=== PATIENT | female | born 1935 | race Caucasian/White ===

== ENCOUNTER 2019-03-17 00:47 | Emergency (ER) | payer MEDICARE ==
[~2019-03-17] VITALS: Ht 162.6 cm; Wt 56.7 kg
--- NOTE | 2019-03-17 01:45 | Diagnostic Imaging Report ---
History: Fall, pain Comparison studies:None Technique: Axial images were obtained from the brain and cervical spine. Coronal and sagittal images reconstructed from the axial data. Intravenous contrast: None Dose modulation, iterative reconstruction, and/or weight based adjustment of the mA/kV was utilized to reduce the radiation dose to as low as reasonably achievable. Findings: Head CT: Scalp/skull: No abnormalities. No fractures, blastic or lytic lesions. Brain sulci: Mildly prominent. Ventricles: Mild compensatory dilatation. No hydrocephalus. Parenchyma: Subtle hypodensities in the supratentorial white matter are small vessel ischemic changes. Cortical-based hypodensity at the right cuneus with associated volume loss. No masses, hemorrhage or acute cortical vascular insults. Sellar/suprasellar region: No abnormalities. Craniocervical junction: Patent foramen magnum. No Chiari one malformation. Incidental findings: Atherosclerotic calcifications in the carotid siphons Cervical spine CT: Fractures: None. Soft tissues: No gross abnormalities. Atlantoaxial articulation: Intact. Alignment: Normal lordosis. No scoliosis. Cervicomedullary junction: No abnormalities. Patent foramen magnum. Vertebrae: No infection or neoplasm. Degenerative changes: Moderate bilateral degenerative foraminal narrowing at C5-6. Incidental findings: Sclerotic s focus at C2 left facet joint. Impression: Head CT: 1. No acute abnormality. Cervical spine CT: 1. No acute abnormalities. 2. Cannot exclude ligament, spinal cord and or vascular abnormalities on the basis of this examination. Signed by: DR Oscar Nicolas M.D. on 03/17/2019 1:41 AM
--- NOTE | 2019-03-17 02:27 | Diagnostic Imaging Report ---
Exam: AP radiograph of the pelvis-1 view; right hip radiographs-2 views; History: Status post fall. Comparison: None. Findings: Diffuse osteopenia. There is partially seen bilateral proximal femoral ORIF. The hardware appears intact. There is an acute, comminuted intertrochanteric/proximal right femoral shaft fracture. There is associated displacement, measuring up to 1.6 cm. There is an old fracture deformity of the left proximal femur. The right femoral acetabular alignment is maintained. Bowel gas partially appears visualization of the pelvis. Surgical clips project in the pelvis and right lower quadrant. Impression: Acute, comminuted, displaced intertrochanteric/proximal right femoral shaft fracture. Postsurgical changes status post bilateral proximal femoral ORIF. Partially visualized hardware appears intact. Signed by: Dr. Kelley Melendez MD on 03/17/2019 2:24 AM
--- NOTE | 2019-03-17 02:27 | Diagnostic Imaging Report ---
Exam: Left knee radiographs-3 views Clinical History: Fall. Comparison: None. Findings: Diffuse osteopenia. No evidence of acute fracture or malalignment. No suprapatellar joint effusion. There are severe medial compartment predominant tricompartmental degenerative changes. Partially seen fixation hardware in the distal femur. Impression: No acute radiographic abnormality. Diffuse osteopenia and severe degenerative changes of the knee. Signed by: Dr. Kelley Melendez MD on 03/17/2019 2:23 AM
--- NOTE | 2019-03-17 02:28 | Diagnostic Imaging Report ---
Exam: Right elbow radiographs-3 views History: Fall. Comparison: None. Findings: No evidence of acute fracture, malalignment, or joint effusion. Diffuse osteopenia. Mild triceps enthesopathy. Impression: No acute radiographic abnormality. Signed by: Dr. Kelley Melendez MD on 03/17/2019 2:25 AM
[2019-03-17] MEDS ORDERED: TRAMADOL HCL 50 MG TAB PO ONE (03:00)
--- NOTE | 2019-03-17 03:04 | Diagnostic Imaging Report ---
Right hip CT without contrast History: Evaluate right hip fracture. Comparison studies:Right hip radiographs 03/17/2019. Technique: The right hip was scanned utilizing a multidetector helical scanner without administration of IV contrast. Coronal and sagittal reformations were obtained. Routine protocol was performed. Intravenous contrast: None Dose modulation, iterative reconstruction, and/or weight based adjustment of the mA/kV was utilized to reduce the radiation dose to as low as reasonably achievable. Findings: There is an acute, displaced, comminuted intertrochanteric fracture extending into the proximal femoral diaphysis and greater trochanter. The dominant fracture component from the medial proximal femoral diaphysis is displaced 1.8 cm medially and displaced anteriorly. No evidence of intra-articular extension. The right femoral acetabular alignment is maintained. There are partially seen post surgical changes status post ORIF with intramedullary benny and two partially threaded screws. Although the fracture extends to the hardware in the intertrochanteric and subtrochanteric region, the hardware appears intact. Mild surrounding soft tissue edema. Impression: Acute, displaced, comminuted, intertrochanteric and subtrochanteric fracture of the right proximal femur. Status post ORIF of the right proximal femur with partially visualized hardware which appears intact. The fracture lines extend to the hardware. Signed by: Dr. Kelley Melendez MD on 03/17/2019 3:00 AM
--- NOTE | 2019-03-17 03:10 | NUR ---
[facility] CALLED AT THIS TIME FOR TRANSPORTATION BACK TO [facility].
== END 2019-03-17 04:41 ==
LOC: ER 00:47
DX: S00.81XA Abrasion of other part of head, initial encounter (principal); S50.811A Abrasion of right forearm, initial encounter; S80.212A Abrasion, left knee, initial encounter; W07.XXXA Fall from chair, initial encounter; Y93.89 Activity, other specified; Y92.129 Unspecified place in nursing home as the place of occurrence of the external cause; E11.22 Type 2 diabetes mellitus with diabetic chronic kidney disease; I12.9 Hypertensive chronic kidney disease with stage 1 through stage 4 chronic kidney disease, or unspecified chronic kidney disease; N18.9 Chronic kidney disease, unspecified; E78.5 Hyperlipidemia, unspecified; E11.51 Type 2 diabetes mellitus with diabetic peripheral angiopathy without gangrene; E11.42 Type 2 diabetes mellitus with diabetic polyneuropathy; M84.459A Pathological fracture, hip, unspecified, initial encounter for fracture
CPT/HCPCS: 70450; 72125; 72170; 99283